=== PATIENT | male | born 1960 | race African-American/Black ===

== ENCOUNTER 2018-03-17 13:29 | Observation (INO) ==
[2018-03-17] MEDS ORDERED: hydrALAZINE 20 MG/1 ML VIAL IV ONE (15:51)
[2018-03-17] MEDS ORDERED: MORPHINE 4 MG/1 ML VIAL IV PRN (16:13)
[2018-03-17] MEDS ORDERED: ACETAMINOPHEN 325 MG TABLET PO PRN (16:13)
[2018-03-17] MEDS ORDERED: NICOTINE 21 MG/24 HR PATCH TRANSDERM PRN (16:13)
[2018-03-17] MEDS ORDERED: ONDANSETRON 4 MG/2 ML VIAL IV PRN (16:13)
[2018-03-17] MEDS ORDERED: hydrALAZINE 20 MG/1 ML VIAL IV PRN (16:18)
[2018-03-17] MEDS: chlordiazePOXIDE 25 MG CAPSULE PO SCH ×2 (18:53→23:04)
[2018-03-17] MEDS: FOLIC ACID 1 MG TABLET PO SCH (18:54)
[2018-03-17] MEDS: THIAMINE 100 MG TABLET PO SCH (18:54)
[2018-03-17] MEDS: cefTRIAXone 2,000 MG in SYRINGE 1 EACH IV SCH (18:55)
[2018-03-17] MEDS: HEPARIN 5,000 UNIT/1 ML VIAL SUBCUT SCH (19:01)
[2018-03-17] MEDS ORDERED: CYCLOBENZAPRINE 10 MG TABLET PO SCH (21:00)
[2018-03-17] MEDS: DOCUSATE SODIUM 100 MG CAPSULE PO SCH (21:01)
[2018-03-17] MEDS: CARVEDILOL 6.25 MG TABLET PO SCH (21:01)
[2018-03-17] MEDS: SODIUM CHLORIDE 0.45% 1,000 ML IV SCH (22:52)
[2018-03-17] MEDS: THIAMINE INJ 100 MG, FOLIC ACID INJ 1 MG, MULTIVITAMIN INJ 10 ML in SODIUM CHLORIDE 0.9... IV SCH (22:52)
[2018-03-18] MEDS: HEPARIN 5,000 UNIT/1 ML VIAL SUBCUT SCH ×2 (00:48→09:19)
[2018-03-18] MEDS: chlordiazePOXIDE 25 MG CAPSULE PO SCH ×2 (04:29→11:25)
[2018-03-18 05:56] LABS: Basophils # 0.1 10*3/uL (0.0-0.2); Basophils % 0.9 % (0.0-0.8); Eosinophils # 0.5 10*3/uL (0.0-0.87); Eosinophils % 7.4 % (0.00-10.9); Hematocrit 36.7 VOL% (42.0-52.0); Hemoglobin 11.7 GM/DL (14.0-18.0); Immature Granulocytes % 0.1 %; Immature Granulocytes Absolute 0.01 #; Lymphocytes # 1.8 10*3/uL (1.4-4.0); Lymphocytes % 26.1 % (21.2-54.2); Mean Corpuscular HGB Conc 31.9 GM/DL (32-36); Mean Corpuscular Hemoglobin 29 PG (27-34); Mean Corpuscular Volume 91.1 FL (87-102); Mean Platelet Volume 9.4 FL (9.6-12.0); Monocytes # 0.6 10*3/uL (0.11-0.8); Monocytes % 8.1 % (1.7-12.7); Neutrophils # 3.9 10*3/uL (1.4-7.4); Neutrophils % 57.4 % (38.7-73.9); Platelet Count 453 T/CUMM (130-400); Red Blood Count 4.03 MC/CUMM (3.8-5.5); Red Cell Distribution Width 14.1 % (9.3-17.3); White Blood Count 6.8 T/CUMM (4-12)
[2018-03-18 07:01] LABS: Albumin 3.1 G/DL (3.4-5.0); Bilirubin,Total 0.63 MG/DL (0.2-1.0); Calcium 8.4 MG/DL (8.5-10.1); Total Protein 7.3 G/DL (6.4-8.3)
[2018-03-18 07:02] LABS: Osmolality,Calculated 274.5 MOS/KG (273-304); Potassium 3.4 MMOL/L (3.5-5.1); Risk Ratio 2.09; VLDL CHOLESTEROL 11.2 MG/DL
[2018-03-18 07:03] LABS: Thyroid Stimulating Hormone 3.75 uIU/ml (0.358-3.74)
[2018-03-18] MEDS ORDERED: amLODIPine 10 MG TABLET PO SCH (09:00)
[2018-03-18] MEDS: SODIUM CHLORIDE 0.45% 1,000 ML IV SCH ×2 (09:35→17:30)
[2018-03-18 09:37] LABS: Folate > 24.0 NG/ML (5.4-24.0); Vitamin B12 1727 PG/ML (211-911)
[2018-03-18] MEDS ORDERED: LORazepam 0.5 MG TABLET PO PRN (12:13)
[2018-03-18] MEDS: CARVEDILOL 6.25 MG TABLET PO SCH (12:35)
[2018-03-18] MEDS: DOCUSATE SODIUM 100 MG CAPSULE PO SCH (13:12)
[2018-03-18] MEDS: FOLIC ACID 1 MG TABLET PO SCH (13:14)
[2018-03-18] MEDS: THIAMINE 100 MG TABLET PO SCH (13:15)
[2018-03-18 13:26] LABS: PT Patient Result 10.4 SECS; Partial Thromboplastin Time 31.6 SECS (0-40)
[2018-03-18 16:38] VITALS: BP 131/73
[2018-03-18] MEDS: THIAMINE INJ 100 MG, FOLIC ACID INJ 1 MG, MULTIVITAMIN INJ 10 ML in SODIUM CHLORIDE 0.9... IV SCH (17:30)
[2018-03-18] MEDS: cefTRIAXone 2,000 MG in SYRINGE 1 EACH IV SCH (17:30)
[2018-03-18] MEDS ORDERED: chlordiazePOXIDE 25 MG CAPSULE PO SCH (21:00)
[2018-03-19] MEDS ORDERED: PROMETHAZINE 25 MG/1 ML VIAL IM ONE (07:00)
[2018-03-19] MEDS ORDERED: LIDOCAINE 2% 20 ML VIAL RESP TX ONE (07:30)
[2018-03-19] MEDS ORDERED: MIDAZOLAM 2 MG/2 ML VIAL IV ONE (07:30)
[2018-03-19] MEDS ORDERED: LIDOCAINE 2% VISCOUS 100 ML BOTTLE SWISH/SPIT ONE (07:30)
[2018-03-19] MEDS ORDERED: LIDOCAINE 1% 20 ML VIAL MISC INJ ONE (07:30)
== END 2018-03-18 17:30 | disposition left against medical advice (07) ==
LOC: SUATTDRO 14:56 → INTOOBSV 14:56 → N.2W 14:56 → N.4E 18:26
PROVIDERS: ADMIT Internal Medicine; ATTEND Internal Medicine